=== PATIENT | female | born 1950 | race Caucasian/White ===

== ENCOUNTER → 2016-12-02 | Outpatient (CLI) | payer MEDICARE | END | disposition home or self-care (01) | LOC: CFH 11:05 | PROVIDERS: ATTEND Nurse Practitioner Family | DX: S72.091A Other fracture of head and neck of right femur, initial encounter for closed fracture (principal); M21.851 Other specified acquired deformities of right thigh; M16.0 Bilateral primary osteoarthritis of hip; X58.XXXA Exposure to other specified factors, initial encounter; Y93.89 Activity, other specified; Y92.89 Other specified places as the place of occurrence of the external cause; Y99.8 Other external cause status | CPT/HCPCS: 73523 ==

== ENCOUNTER → 2017-05-20 | Outpatient (CLI) | payer MEDICARE | END | disposition home or self-care (01) | LOC: CFH 14:24 | PROVIDERS: ATTEND Nurse Practitioner Family | DX: Z12.31 Encounter for screening mammogram for malignant neoplasm of breast (principal); M85.80 Other specified disorders of bone density and structure, unspecified site; N95.8 Other specified menopausal and perimenopausal disorders | CPT/HCPCS: 77067 ==

== ENCOUNTER 2017-07-17 10:07 | Day surgery (SDC) | payer MEDICARE ==
[2017-07-14 16:09] LABS: BASOPHILS # (AUTO) 0.03 x10^3/uL (0-0.1); BASOPHILS % (AUTO) 0 % (0-1); EOSINOPHILS # (AUTO) 0.18 x10^3/uL (0-0.4); EOSINOPHILS % (AUTO) 2 % (1-7); LYMPHOCYTES # (AUTO) 3.49 x10^3/uL (1-3.4); LYMPHOCYTES % (AUTO) 37 % (22-44); MD NO; MEAN CORPUSCULAR HEMOGLOBIN 30.2 pg (27.0-34.8); MEAN CORPUSCULAR HGB CONC 33.9 g/dL (32.4-35.8); MEAN PLATELET VOLUME 7.6 fL (7.4-10.4); MONOCYTES # (AUTO) 0.65 x10^3/uL (0.2-0.8); MONOCYTES % (AUTO) 7 % (2-9); NEUTROPHILS # (AUTO) 5.12 x10^3/uL (1.8-6.8); NEUTROPHILS % (AUTO) 54 % (42-75); PLATELET COUNT 265 x10^3/uL (130-400); RED BLOOD COUNT 5.11 x10^6/uL (3.82-5.3); RED CELL DISTRIBUTION WIDTH 14.7 % (9.6-15.2)
[2017-07-14 16:22] LABS: ALANINE AMINOTRANSFERASE 31 U/L (12-78); ALBUMIN 3.8 g/dL (3.4-5.0); ANION GAP 3 mmol/L (5-15); CALCIUM 9.9 mg/dL (8.5-10.1); CHLORIDE 111 mmol/L (98-107); CREATININE 0.75 mg/dL (0.55-1.02)
[2017-07-14 16:24] LABS: ALKALINE PHOSPHATASE 95 U/L (45-117); BILIRUBIN,TOTAL 0.3 mg/dL (0.2-1.0); TOTAL PROTEIN 7.2 g/dL (6.4-8.2)
[~2017-07-17] VITALS: Ht 162.6 cm; Wt 105.0 kg
[~2017-07-17 10:07] MED LIST: BUPIVACAINE/PF 0.25% ONE; CHOL5000 PO; EPINEPHRINE 1 MG/ML, 1ML ONE; ISOSULFAN BLUE 10 MG/ML, 5ML IV ONE; SPIR50TA2 PO
[2017-07-17 12:37] VITALS: BP 148/89
[2017-07-17] MEDS ORDERED: ACETAMINOPHEN 500 MG TABLET PO ONE (13:00)
[2017-07-17] MEDS ORDERED: SCOPOLAMINE PATCH, 1.5MG PATCH.TD72 TD ONE (13:00)
[2017-07-17] MEDS ORDERED: ONDANSETRON ODT 8 MG PO ONE (13:00)
[2017-07-17] MEDS ORDERED: GABAPENTIN 300 MG CAPSULE PO ONE (13:00)
[2017-07-17] MEDS ORDERED: OxyconTIN ER 10 MG TAB.ER PO ONE (13:00)
[2017-07-17] MEDS ORDERED: LACTATED RINGERS 1,000 ML IV SCH ×2 (13:09→19:00)
[2017-07-17] MEDS ORDERED: MIDAZOLAM 1 MG/ML, 2ML ONE (13:32)
[2017-07-17] MEDS ORDERED: CEFAZOLIN 1,000 MG ONE (13:48)
[2017-07-17] MEDS ORDERED: ONDANSETRON 2MG/ML, 2ML ONE (13:48)
[2017-07-17] MEDS ORDERED: ROCURONIUM 10 MG/ML,10ML ONE (13:48)
[2017-07-17] MEDS ORDERED: PROPOFOL 10 MG/ML, 20ML ONE (13:48)
[2017-07-17] MEDS ORDERED: SUCCINYLCHOLINE 20 MG/ML, 10ML ONE (13:48)
[2017-07-17] MEDS ORDERED: DEXAMETHASONE 4 MG/ML, 5ML ONE (13:48)
[2017-07-17] MEDS ORDERED: LIDOCAINE 1%, 20ML ONE (14:23)
[2017-07-17] MEDS ORDERED: SODIUM BICARBONATE 4.2%, 5ML ONE (14:23)
[2017-07-17] MEDS ORDERED: BUPIVACAINE/PF-EPI 0.25% 1:200K IM ONE (14:31)
[2017-07-17] MEDS ORDERED: FENTANYL PF 250 MCG/5ML ONE (15:30)
[2017-07-17] MEDS ORDERED: FENTANYL PF 100 MCG/2ML ONE (16:51)
[2017-07-17] MEDS: FENTANYL PF 100 MCG/2ML IV PRN ×2 (16:56→17:11)
[2017-07-17] MEDS ORDERED: ONDANSETRON 2MG/ML, 2ML IVPush PRN ×2 (17:00→19:00)
[2017-07-17] MEDS ORDERED: OXYcodone 5 MG/5 ML ORAL.SOL UDC PO PRN (17:00)
[2017-07-17] MEDS ORDERED: hydrALAzine 20 MG/ML, 1ML IV PRN (17:00)
[2017-07-17] MEDS ORDERED: HYDROmorphone 1 MG/ML, 1ML IV PRN (17:00)
[2017-07-17] MEDS ORDERED: LABETALOL 5MG/ML, 20ML IV PRN (17:00)
[2017-07-17] MEDS ORDERED: METOCLOPRAMIDE 5 MG/ML, 2ML IV PRN (17:00)
[2017-07-17] MEDS ORDERED: ACETAMINOPHEN 325 MG TABLET PO PRN (17:00)
[2017-07-17] MEDS ORDERED: OXYcodone 5 MG/5 ML ORAL.SOL UDC ONE (17:14)
[2017-07-17] MEDS ORDERED: MEPERIDINE/PF 25MG/0.5ML ONE (17:30)
[2017-07-17] MEDS ORDERED: MEPERIDINE/PF 25MG/0.5ML IVPush PRN (18:00)
[2017-07-17] MEDS ORDERED: ONDANSETRON ODT 4 MG PO PRN (19:00)
[2017-07-17] MEDS ORDERED: MORPHINE SULFATE 4 MG/ML, 1ML IVPush PRN (19:00)
== END 2017-07-17 22:15 | disposition home or self-care (01) ==
LOC: SDC 10:07 → EDSTATUS 13:30 → 4NOR 18:14 → OUT 22:15
PROVIDERS: ATTEND Surgery
DX: C50.911 Malignant neoplasm of unspecified site of right female breast (principal); Z90.11 Acquired absence of right breast and nipple; Z87.39 Personal history of other diseases of the musculoskeletal system and connective tissue; Z96.653 Presence of artificial knee joint, bilateral; Z98.890 Other specified postprocedural states
CPT/HCPCS: 19301; 36415; 38525; 38792; 80053; 85025; 88305; 88307; 88329; 93005; A9541; C1729; J0171; J0330; J0690; J1100; J2175; J2250; J2405; J2704; J3010; J3490; J7120; Q0162

== ENCOUNTER → 2017-08-07 | Outpatient (CLI) | payer MEDICARE ==
[~2017-08-07] MED LIST changes: -BUPIVACAINE/PF 0.25% ONE; -EPINEPHRINE 1 MG/ML, 1ML ONE; -ISOSULFAN BLUE 10 MG/ML, 5ML IV ONE
== END | disposition home or self-care (01) ==
LOC: ROC 07:28
PROVIDERS: ATTEND Radiology Radiation Oncology
DX: Z08 Encounter for follow-up examination after completed treatment for malignant neoplasm (principal); C50.911 Malignant neoplasm of unspecified site of right female breast
CPT/HCPCS: 99214; G0463

== ENCOUNTER → 2017-08-26 | Outpatient (CLI) | payer MEDICARE ==
[~2017-08-26] MED LIST changes: +OMNIPAQUE 350 MG/ML, 100ML BOTTLE ONE
== END | disposition home or self-care (01) ==
LOC: RAD 09:23
PROVIDERS: ATTEND Internal Medicine Hematology & Oncology
DX: K57.30 Diverticulosis of large intestine without perforation or abscess without bleeding (principal); N85.2 Hypertrophy of uterus; E04.2 Nontoxic multinodular goiter; C50.411 Malignant neoplasm of upper-outer quadrant of right female breast
CPT/HCPCS: 71260; 74177; 78306; A9503; Q9967

== ENCOUNTER 2017-10-01 14:12 | Inpatient (IN) | payer MEDICARE ==
[~2017-10-01] VITALS: Ht 160 cm; Wt 99.2 kg
[~2017-10-01 14:12] MED LIST changes: -OMNIPAQUE 350 MG/ML, 100ML BOTTLE ONE; -SPIR50TA2 PO; +SPIR50TA4 PO
[2017-10-01] MEDS ORDERED: ACETAMINOPHEN 500 MG TABLET PO ONE (15:00)
[2017-10-01] MEDS ORDERED: SODIUM CHLORIDE 0.9% 1,000ML IVBOLUS ONE (15:00)
[2017-10-01 15:33] LABS: ALBUMIN 2.9 g/dL (3.4-5.0); ANION GAP 7 mmol/L (5-15); CHLORIDE 107 mmol/L (98-107); CREATININE 0.58 mg/dL (0.55-1.02)
[2017-10-01] MEDS ORDERED: ACETAMINOPHEN 500 MG TABLET ONE (15:33)
[2017-10-01 15:42] LABS: MEAN CORPUSCULAR HEMOGLOBIN 29.7 pg (27.0-34.8); MEAN CORPUSCULAR HGB CONC 34.2 g/dL (32.4-35.8); MEAN CORPUSCULAR VOLUME 86.9 fL (80-100); MEAN PLATELET VOLUME 8.1 fL (7.4-10.4); PLATELET COUNT 249 x10^3/uL (130-400); RED BLOOD COUNT 4.44 x10^6/uL (3.82-5.3); RED CELL DISTRIBUTION WIDTH 14.5 % (9.6-15.2)
[2017-10-01 15:49] LABS: MD YES
[2017-10-01] MEDS ORDERED: MULT-6 PO (16:05)
[2017-10-01] MEDS ORDERED: MAGN100T PO (16:05)
[2017-10-01 16:26] LABS: BAND#(MANUAL) 0.03 x10^3/uL; BANDS%(MANUAL) 1 % (0-7); LYMPH#(MANUAL) 1.43 x10^3/uL (1-3.4); LYMPHS% (MANUAL) 55 % (22-44); MONOS#(MANUAL) 0.57 x10^3/uL (0.3-2.7); MONOS% (MANUAL) 22 % (2-9); SEG#(MANUAL) 0.57 x10^3/uL (1.8-6.8); SEGS% (MANUAL) 22 % (42-75)
[2017-10-01 16:29] LABS: <PLATELET ESTIMATE> ADEQUATE; <PLT MORPHOLOGY> NORMAL PLT MORPH; <RBC MORPHOLOGY> NORMAL
[2017-10-01 17:00] LABS: MICROSCOPIC INDICATED
[2017-10-01] MEDS ORDERED: ERTAPENEM 1 GM in SODIUM CHLORIDE 0.9% 50 ML IV SCH ×2 (17:00→18:00)
[2017-10-01 17:01] LABS: CULTURE INDICATED? YES
[2017-10-01] MEDS ORDERED: ONDANSETRON 2MG/ML, 2ML IVPush PRN (17:30)
[2017-10-01] MEDS ORDERED: DOCUSATE 100 MG CAPSULE PO PRN (17:30)
[2017-10-01] MEDS ORDERED: ONDANSETRON ODT 4 MG PO PRN (17:30)
[2017-10-01] MEDS ORDERED: POLYETHYLENE GLYCOL 17 GM PACKET PO PRN (17:30)
[2017-10-01 18:10] VITALS: BP 125/77
[2017-10-01] MEDS: SODIUM CHLORIDE 0.9% 1,000 ML IV SCH (18:47)
[2017-10-01 19:44] VITALS: BP 114/74
[2017-10-01] MEDS: ENOXAPARIN 40 MG/0.4 ML SQ SCH (20:00)
[2017-10-02 02:20] VITALS: BP 100/60
[2017-10-02] MEDS: SODIUM CHLORIDE 0.9% 1,000 ML IV SCH (02:22)
[2017-10-02 05:49] LABS: ALANINE AMINOTRANSFERASE 26 U/L (12-78); ALBUMIN 2.6 g/dL (3.4-5.0); ANION GAP 5 mmol/L (5-15); CALCIUM 8.7 mg/dL (8.5-10.1); CHLORIDE 111 mmol/L (98-107); CREATININE 0.43 mg/dL (0.55-1.02)
[2017-10-02 05:51] LABS: ALKALINE PHOSPHATASE 105 U/L (45-117); BILIRUBIN,TOTAL 0.4 mg/dL (0.2-1.0); MEAN CORPUSCULAR HGB CONC 33.4 g/dL (32.4-35.8); MEAN CORPUSCULAR VOLUME 86.8 fL (80-100); MEAN PLATELET VOLUME 7.9 fL (7.4-10.4); PLATELET COUNT 234 x10^3/uL (130-400); RED BLOOD COUNT 3.98 x10^6/uL (3.82-5.3); RED CELL DISTRIBUTION WIDTH 14.3 % (9.6-15.2); TOTAL PROTEIN 5.7 g/dL (6.4-8.2)
[2017-10-02 06:19] LABS: MD YES
[2017-10-02 06:22] LABS: BAND#(MANUAL) 0.11 x10^3/uL; BANDS%(MANUAL) 3 % (0-7); EOS#(MANUAL) 0.04 x10^3/uL (0.0-0.4); EOS% (MANUAL) 1 % (1-7); METAMYELOCYTES# (MANUAL) 0.04 x10^3/uL (0-0); METAMYELOCYTES% (MANUAL) 1 % (0-1); NRBC % (MANUAL) 2 % (0-1); SEG#(MANUAL) 0.78 x10^3/uL (1.8-6.8); SEGS% (MANUAL) 21 % (42-75)
[2017-10-02 06:23] LABS: BASOS#(MANUAL) 0.07 x10^3/uL (0-0.1); BASOS% (MANUAL) 2 % (0-1); LYMPHS% (MANUAL) 46 % (22-44); MONOS#(MANUAL) 0.96 x10^3/uL (0.3-2.7); MONOS% (MANUAL) 26 % (2-9)
[2017-10-02 06:24] LABS: <PLATELET ESTIMATE> ADEQUATE; <PLT MORPHOLOGY> NORMAL PLT MORPH; <RBC MORPHOLOGY> NORMAL
[2017-10-02 08:18] LABS: CLOSTRIDIUM DIFFICILE ANTIGEN NEGATIVE; CLOSTRIDIUM DIFFICILE TOXIN NEGATIVE (Negative)
[2017-10-02 08:30] VITALS: BP 105/70
[2017-10-02 08:30] LABS: CRYPTOSPORIDIUM ANTIGEN Negative (Negative)
[2017-10-02] MEDS: MULTIVITAMIN 1 TABLET PO SCH (08:58)
[2017-10-02] MEDS: CHOLECALCIFEROL 5,000 UNIT TAB PO SCH (08:58)
[2017-10-02] MEDS: MAGNESIUM OXIDE 400 MG TABLET PO SCH (08:59)
[2017-10-02] MEDS: SPIRONOLACTONE 50 MG TABLET PO SCH (09:00)
[2017-10-02] MEDS: CEFEPIME 2 GM in DEXTROSE 5% 100 ML IV SCH ×2 (10:14→18:20)
[2017-10-02 13:49] VITALS: BP 107/69
[2017-10-02] MEDS: ACETAMINOPHEN 325 MG TABLET PO PRN (16:01)
[2017-10-02 19:28] VITALS: BP 99/66
[2017-10-02] MEDS: ENOXAPARIN 40 MG/0.4 ML SQ SCH (20:38)
[2017-10-03] MEDS: CEFEPIME 2 GM in DEXTROSE 5% 100 ML IV SCH (01:57)
[2017-10-03 02:03] VITALS: BP 96/59
[2017-10-03 05:42] LABS: ANION GAP 6 mmol/L (5-15); CALCIUM 9.1 mg/dL (8.5-10.1); CHLORIDE 112 mmol/L (98-107); CREATININE 0.44 mg/dL (0.55-1.02)
[2017-10-03 05:46] LABS: MEAN CORPUSCULAR HEMOGLOBIN 28.8 pg (27.0-34.8); MEAN CORPUSCULAR HGB CONC 33.3 g/dL (32.4-35.8); MEAN CORPUSCULAR VOLUME 86.4 fL (80-100); MEAN PLATELET VOLUME 7.7 fL (7.4-10.4); PLATELET COUNT 239 x10^3/uL (130-400); RED BLOOD COUNT 3.97 x10^6/uL (3.82-5.3); RED CELL DISTRIBUTION WIDTH 14.3 % (9.6-15.2)
[2017-10-03 06:22] LABS: MD YES
[2017-10-03 06:24] LABS: BAND#(MANUAL) 0.46 x10^3/uL; BANDS%(MANUAL) 6 % (0-7); EOS#(MANUAL) 0.23 x10^3/uL (0.0-0.4); EOS% (MANUAL) 3 % (1-7); LYMPH#(MANUAL) 1.85 x10^3/uL (1-3.4); LYMPHS% (MANUAL) 24 % (22-44); METAMYELOCYTES# (MANUAL) 0.08 x10^3/uL (0-0); METAMYELOCYTES% (MANUAL) 1 % (0-1); MONOS#(MANUAL) 1.31 x10^3/uL (0.3-2.7); MONOS% (MANUAL) 17 % (2-9); SEG#(MANUAL) 3.77 x10^3/uL (1.8-6.8); SEGS% (MANUAL) 49 % (42-75)
[2017-10-03 06:25] LABS: <RBC MORPHOLOGY> NORMAL
[2017-10-03 06:26] LABS: <PLATELET ESTIMATE> ADEQUATE; <PLT MORPHOLOGY> NORMAL PLT MORPH; TOXIC GRAN 1+
[2017-10-03 06:50] VITALS: BP 103/67
[2017-10-03] MEDS: ACETAMINOPHEN 325 MG TABLET PO PRN (07:38)
[2017-10-03] MEDS: SPIRONOLACTONE 50 MG TABLET PO SCH (07:38)
[2017-10-03] MEDS: MULTIVITAMIN 1 TABLET PO SCH (07:38)
[2017-10-03] MEDS: MAGNESIUM OXIDE 400 MG TABLET PO SCH (07:38)
[2017-10-03] MEDS: CHOLECALCIFEROL 5,000 UNIT TAB PO SCH (07:38)
[2017-10-03] MEDS ORDERED: CIPROFLOXACIN 500 MG TABLET PO SCH (09:00)
[2017-10-03] MEDS ORDERED: CIPR500T87 PO (10:05)
== END 2017-10-03 12:31 | disposition home or self-care (01) | DRG 872 ==
LOC: ED 16:59 → EDIP 17:02 → 3NW 17:38 → DCLOUNGE 10-03 12:31
PROVIDERS: ADMIT Hospitalist; ATTEND Hospitalist
DX: A41.9 Sepsis, unspecified organism (principal); N39.0 Urinary tract infection, site not specified; E44.0 Moderate protein-calorie malnutrition; B96.20 Unspecified Escherichia coli [E. coli] as the cause of diseases classified elsewhere; B96.89 Other specified bacterial agents as the cause of diseases classified elsewhere; Z96.653 Presence of artificial knee joint, bilateral; D70.9 Neutropenia, unspecified; D64.9 Anemia, unspecified; Z80.3 Family history of malignant neoplasm of breast; Z82.0 Family history of epilepsy and other diseases of the nervous system; Z80.0 Family history of malignant neoplasm of digestive organs; Z85.3 Personal history of malignant neoplasm of breast; Z92.21 Personal history of antineoplastic chemotherapy; Z17.0 Estrogen receptor positive status [ER+]; Z90.10 Acquired absence of unspecified breast and nipple; Z68.38 Body mass index [BMI] 38.0-38.9, adult
CPT/HCPCS: 36415; 71045; 80048; 80053; 81001; 82040; 83605; 84145; 84443; 85025; 87040; 87077; 87086; 87186; 87324; 87328; 87329; 89055; 99285; J1335; J1650; J7030

== ENCOUNTER 2017-10-20 08:07 | Inpatient (IN) | payer MEDICARE ==
[~2017-10-20] VITALS: Ht 160 cm; Wt 107.8 kg
[~2017-10-20 08:07] MED LIST changes: +CIPR500T87 PO; +MAGN100T PO; +MULT-6 PO
[2017-10-20] MEDS ORDERED: SODIUM CHLORIDE FLUSH 10ML SYR IVF ONE (09:30)
[2017-10-20 10:01] LABS: ALANINE AMINOTRANSFERASE 35 U/L (12-78); ALBUMIN 3.1 g/dL (3.4-5.0); ANION GAP 5 mmol/L (5-15); CALCIUM 8.8 mg/dL (8.5-10.1); CHLORIDE 109 mmol/L (98-107); CREATININE 0.54 mg/dL (0.55-1.02)
[2017-10-20 10:03] LABS: ALKALINE PHOSPHATASE 113 U/L (45-117); BILIRUBIN,TOTAL 0.6 mg/dL (0.2-1.0)
[2017-10-20 10:05] LABS: MEAN CORPUSCULAR HEMOGLOBIN 28.8 pg (27.0-34.8); MEAN CORPUSCULAR HGB CONC 33.2 g/dL (32.4-35.8); MEAN CORPUSCULAR VOLUME 86.9 fL (80-100); MEAN PLATELET VOLUME 7.9 fL (7.4-10.4); PLATELET COUNT 195 x10^3/uL (130-400); RED BLOOD COUNT 4.42 x10^6/uL (3.82-5.3); RED CELL DISTRIBUTION WIDTH 15.9 % (9.6-15.2)
[2017-10-20 10:21] LABS: MD YES
[2017-10-20 10:23] LABS: BAND#(MANUAL) 1.27 x10^3/uL; BANDS%(MANUAL) 11 % (0-7); EOS#(MANUAL) 0.12 x10^3/uL (0.0-0.4); EOS% (MANUAL) 1 % (1-7); LYMPH#(MANUAL) 0.58 x10^3/uL (1-3.4); LYMPHS% (MANUAL) 5 % (22-44); MONOS#(MANUAL) 0.12 x10^3/uL (0.3-2.7); MONOS% (MANUAL) 1 % (2-9); SEG#(MANUAL) 9.43 x10^3/uL (1.8-6.8); SEGS% (MANUAL) 82 % (42-75)
[2017-10-20 10:24] LABS: <RBC MORPHOLOGY> NORMAL
[2017-10-20 10:25] LABS: <PLATELET ESTIMATE> ADEQUATE; <PLT MORPHOLOGY> NORMAL PLT MORPH
[2017-10-20 10:51] LABS: MICROSCOPIC INDICATED
[2017-10-20 10:52] LABS: CULTURE INDICATED? YES
[2017-10-20] MEDS ORDERED: CEFTRIAXONE PMX 1GM/50ML 50 ML ONE (12:29)
[2017-10-20] MEDS ORDERED: CEFTRIAXONE PMX 1GM/50ML 50 ML IV ONE (12:30)
[2017-10-20] MEDS ORDERED: SODIUM CHLORIDE 0.9% 1,000 ML IV ONE (12:32)
[2017-10-20] MEDS ORDERED: ACETAMINOPHEN 500 MG TABLET ONE (12:42)
[2017-10-20] MEDS ORDERED: SODIUM CHLORIDE 0.9% 1,000ML IVBOLUS ONE (13:00)
[2017-10-20] MEDS ORDERED: ACETAMINOPHEN 500 MG TABLET PO ONE (13:00)
[2017-10-20] MEDS ORDERED: ONDANSETRON 2MG/ML, 2ML IVPush PRN (13:30)
[2017-10-20] MEDS ORDERED: LABETALOL 5MG/ML, 20ML IVPush PRN (13:30)
[2017-10-20] MEDS ORDERED: ONDANSETRON ODT 4 MG PO PRN (13:30)
[2017-10-20 14:00] VITALS: BP 115/72
[2017-10-20] MEDS: SODIUM CHLORIDE 0.9% 1,000 ML IV SCH (14:32)
[2017-10-20] MEDS: PIPERACILLIN/TAZO/PMX 3.375GM 50 ML IV SCH ×2 (14:51→20:28)
[2017-10-20 19:34] VITALS: BP 125/80
[2017-10-20] MEDS: ACETAMINOPHEN 325 MG TABLET PO PRN (20:48)
[2017-10-21] MEDS: PIPERACILLIN/TAZO/PMX 3.375GM 50 ML IV SCH ×4 (01:38→19:49)
[2017-10-21 02:20] VITALS: BP 120/72
[2017-10-21] MEDS: SODIUM CHLORIDE 0.9% 1,000 ML IV SCH (04:03)
[2017-10-21 04:24] LABS: MEAN CORPUSCULAR HGB CONC 33.4 g/dL (32.4-35.8); MEAN CORPUSCULAR VOLUME 87.1 fL (80-100); MEAN PLATELET VOLUME 7.8 fL (7.4-10.4); PLATELET COUNT 184 x10^3/uL (130-400); RED BLOOD COUNT 4.02 x10^6/uL (3.82-5.3); RED CELL DISTRIBUTION WIDTH 16.1 % (9.6-15.2)
[2017-10-21 04:33] LABS: ALANINE AMINOTRANSFERASE 30 U/L (12-78); ALBUMIN 2.6 g/dL (3.4-5.0); ANION GAP 5 mmol/L (5-15); CALCIUM 8.7 mg/dL (8.5-10.1); CHLORIDE 113 mmol/L (98-107); CREATININE 0.52 mg/dL (0.55-1.02)
[2017-10-21 04:36] LABS: ALKALINE PHOSPHATASE 103 U/L (45-117); BILIRUBIN,TOTAL 0.9 mg/dL (0.2-1.0); TOTAL PROTEIN 5.7 g/dL (6.4-8.2)
[2017-10-21 04:57] LABS: BASOPHILS % (AUTO) 0 % (0-1); EOSINOPHILS # (AUTO) 0.05 x10^3/uL (0-0.4); EOSINOPHILS % (AUTO) 1 % (1-7); LYMPHOCYTES # (AUTO) 0.83 x10^3/uL (1-3.4); LYMPHOCYTES % (AUTO) 15 % (22-44); MD SCAN; MONOCYTES # (AUTO) 0.07 x10^3/uL (0.2-0.8); MONOCYTES % (AUTO) 1 % (2-9); NEUTROPHILS # (AUTO) 4.61 x10^3/uL (1.8-6.8); NEUTROPHILS % (AUTO) 83 % (42-75)
[2017-10-21 07:45] VITALS: BP 125/75
[2017-10-21] MEDS: SENNA/DOCUSATE TABLET PO SCH (07:56)
[2017-10-21 15:51] VITALS: BP 145/81
[2017-10-21] MEDS: ACETAMINOPHEN 325 MG TABLET PO PRN (16:26)
[2017-10-21 19:20] VITALS: BP 132/82
[2017-10-22 01:50] VITALS: BP 107/67
[2017-10-22] MEDS: ACETAMINOPHEN 325 MG TABLET PO PRN ×3 (02:01→18:13)
[2017-10-22] MEDS: PIPERACILLIN/TAZO/PMX 3.375GM 50 ML IV SCH ×2 (02:01→09:22)
[2017-10-22 04:41] LABS: MEAN CORPUSCULAR HEMOGLOBIN 29.2 pg (27.0-34.8); MEAN CORPUSCULAR HGB CONC 33.6 g/dL (32.4-35.8); MEAN CORPUSCULAR VOLUME 86.8 fL (80-100); MEAN PLATELET VOLUME 7.8 fL (7.4-10.4); PLATELET COUNT 166 x10^3/uL (130-400); RED BLOOD COUNT 3.75 x10^6/uL (3.82-5.3); RED CELL DISTRIBUTION WIDTH 16.3 % (9.6-15.2)
[2017-10-22 04:48] LABS: ALANINE AMINOTRANSFERASE 29 U/L (12-78); ALBUMIN 2.7 g/dL (3.4-5.0); ANION GAP 4 mmol/L (5-15); CHLORIDE 111 mmol/L (98-107)
[2017-10-22 04:51] LABS: ALKALINE PHOSPHATASE 104 U/L (45-117); BILIRUBIN,TOTAL 0.7 mg/dL (0.2-1.0); CREATININE 0.54 mg/dL (0.55-1.02); TOTAL PROTEIN 5.7 g/dL (6.4-8.2)
[2017-10-22 05:20] LABS: BASOPHILS % (AUTO) 0 % (0-1); EOSINOPHILS % (AUTO) 4 % (1-7); LYMPHOCYTES # (AUTO) 0.82 x10^3/uL (1-3.4); LYMPHOCYTES % (AUTO) 34 % (22-44); MD SCAN; MONOCYTES # (AUTO) 0.13 x10^3/uL (0.2-0.8); MONOCYTES % (AUTO) 5 % (2-9); NEUTROPHILS # (AUTO) 1.35 x10^3/uL (1.8-6.8); NEUTROPHILS % (AUTO) 56 % (42-75)
[2017-10-22 07:22] VITALS: BP 123/73
[2017-10-22] MEDS: SENNA/DOCUSATE TABLET PO SCH (09:00)
[2017-10-22] MEDS ORDERED: CEFTRIAXONE 2 GM in SODIUM CHLORIDE 0.9% 50 ML IV SCH (10:00)
[2017-10-22 12:14] VITALS: BP 117/82
[2017-10-22 19:01] VITALS: BP 142/85
[2017-10-23] MEDS: ACETAMINOPHEN 325 MG TABLET PO PRN (01:47)
[2017-10-23 01:50] VITALS: BP 143/83
[2017-10-23 05:10] LABS: ALBUMIN 2.4 g/dL (3.4-5.0); ANION GAP 3 mmol/L (5-15); CHLORIDE 114 mmol/L (98-107)
[2017-10-23 05:14] LABS: ALANINE AMINOTRANSFERASE 26 U/L (12-78); ALKALINE PHOSPHATASE 101 U/L (45-117); BILIRUBIN,TOTAL 0.5 mg/dL (0.2-1.0); CREATININE 0.49 mg/dL (0.55-1.02); TOTAL PROTEIN 5.5 g/dL (6.4-8.2)
[2017-10-23 05:38] LABS: MEAN CORPUSCULAR HEMOGLOBIN 30.1 pg (27.0-34.8); MEAN CORPUSCULAR HGB CONC 34.7 g/dL (32.4-35.8); MEAN CORPUSCULAR VOLUME 86.8 fL (80-100); MEAN PLATELET VOLUME 7.4 fL (7.4-10.4); PLATELET COUNT 198 x10^3/uL (130-400); RED BLOOD COUNT 3.61 x10^6/uL (3.82-5.3); RED CELL DISTRIBUTION WIDTH 15.9 % (9.6-15.2)
[2017-10-23 06:28] LABS: MD YES
[2017-10-23 06:33] LABS: EOS#(MANUAL) 0.14 x10^3/uL (0.0-0.4); EOS% (MANUAL) 6 % (1-7); LYMPH#(MANUAL) 1.29 x10^3/uL (1-3.4); LYMPHS% (MANUAL) 56 % (22-44); MONOS#(MANUAL) 0.37 x10^3/uL (0.3-2.7); MONOS% (MANUAL) 16 % (2-9); NRBC % (MANUAL) 2 % (0-1); SEG#(MANUAL) 0.51 x10^3/uL (1.8-6.8); SEGS% (MANUAL) 22 % (42-75)
[2017-10-23 06:34] LABS: <PLATELET ESTIMATE> ADEQUATE; <PLT MORPHOLOGY> NORMAL PLT MORPH; ANISOCYTOSIS 1+
[2017-10-23] MEDS ORDERED: MAGNESIUM SULFATE PMX 2GM/50ML 50 ML IV ONE (07:30)
[2017-10-23] MEDS: NEUTRA PHOS K 250 MG TABLET PO SCH ×2 (08:04→21:21)
[2017-10-23] MEDS: SENNA/DOCUSATE TABLET PO SCH (08:05)
[2017-10-23 08:10] VITALS: BP 127/79
[2017-10-23] MEDS: CEFTRIAXONE 2 GM in SODIUM CHLORIDE 0.9% 50 ML IV SCH (11:16)
[2017-10-23 13:39] VITALS: BP 117/77
[2017-10-23] MEDS: LORATADINE 10 MG TABLET PO SCH (17:54)
[2017-10-23] MEDS ORDERED: OXYcodone IR 5MG TABLET PO PRN (18:30)
[2017-10-23 18:49] VITALS: BP 119/74
[2017-10-24 03:11] VITALS: BP 115/59
[2017-10-24 07:10] VITALS: BP 131/80
[2017-10-24 07:51] LABS: MEAN CORPUSCULAR HEMOGLOBIN 29.1 pg (27.0-34.8); MEAN CORPUSCULAR HGB CONC 33.5 g/dL (32.4-35.8); MEAN CORPUSCULAR VOLUME 86.9 fL (80-100); MEAN PLATELET VOLUME 7.2 fL (7.4-10.4); PLATELET COUNT 241 x10^3/uL (130-400); RED BLOOD COUNT 3.84 x10^6/uL (3.82-5.3); RED CELL DISTRIBUTION WIDTH 15.7 % (9.6-15.2)
[2017-10-24 07:59] LABS: ALANINE AMINOTRANSFERASE 30 U/L (12-78); ALBUMIN 2.7 g/dL (3.4-5.0); ANION GAP 11 mmol/L (5-15); CALCIUM 9.1 mg/dL (8.5-10.1); CHLORIDE 108 mmol/L (98-107); CREATININE 0.44 mg/dL (0.55-1.02)
[2017-10-24 08:01] LABS: ALKALINE PHOSPHATASE 104 U/L (45-117); BILIRUBIN,TOTAL 0.4 mg/dL (0.2-1.0); TOTAL PROTEIN 5.7 g/dL (6.4-8.2)
[2017-10-24] MEDS ORDERED: POTASSIUM CHLORIDE 20 MEQ TAB.ER.PRT PO ONE ×2 (08:30→11:30)
[2017-10-24 08:36] LABS: BASOPHILS % (AUTO) 2 % (0-1); EOSINOPHILS # (AUTO) 0.07 x10^3/uL (0-0.4); EOSINOPHILS % (AUTO) 1 % (1-7); LYMPHOCYTES % (AUTO) 28 % (22-44); MD SCAN; MONOCYTES # (AUTO) 1.09 x10^3/uL (0.2-0.8); MONOCYTES % (AUTO) 19 % (2-9); NEUTROPHILS # (AUTO) 2.81 x10^3/uL (1.8-6.8); NEUTROPHILS % (AUTO) 50 % (42-75)
[2017-10-24] MEDS: NEUTRA PHOS K 250 MG TABLET PO SCH (08:51)
[2017-10-24] MEDS: LORATADINE 10 MG TABLET PO SCH (08:51)
[2017-10-24] MEDS: SENNA/DOCUSATE TABLET PO SCH (08:52)
[2017-10-24] MEDS ORDERED: LORATADINE 10 MG TABLET PO SCH (09:00)
[2017-10-24] MEDS ORDERED: CEFD300C37 PO (09:40)
[2017-10-24] MEDS: CEFTRIAXONE 2 GM in SODIUM CHLORIDE 0.9% 50 ML IV SCH (10:06)
== END 2017-10-24 11:50 | disposition home or self-care (01) | DRG 872 ==
LOC: ED 12:45 → EDIP 12:46 → ED 12:57 → 3NW 13:36 → DCLOUNGE 10-24 11:31
PROVIDERS: ADMIT Hospitalist; ATTEND Hospitalist
DX: A41.9 Sepsis, unspecified organism (principal); E44.0 Moderate protein-calorie malnutrition; D89.9 Disorder involving the immune mechanism, unspecified; N30.90 Cystitis, unspecified without hematuria; Z96.653 Presence of artificial knee joint, bilateral; Z66 Do not resuscitate; Z90.10 Acquired absence of unspecified breast and nipple; Z92.21 Personal history of antineoplastic chemotherapy; Z80.0 Family history of malignant neoplasm of digestive organs; Z80.3 Family history of malignant neoplasm of breast; Z85.3 Personal history of malignant neoplasm of breast
CPT/HCPCS: 36415; 71045; 76830; 80053; 81001; 83605; 83735; 84100; 84145; 85025; 87040; 87086; 96365; G0378; J0696; J2543; J3475; J7030

== ENCOUNTER 2017-11-12 20:10 | Emergency (ER) | payer MEDICARE ==
[~2017-11-12] VITALS: Ht 160 cm; Wt 104.1 kg
[~2017-11-12 20:10] MED LIST changes: +CEFD300C37 PO
[2017-11-12 20:12] VITALS: BP 133/78
[2017-11-12] MEDS ORDERED: ACETAMINOPHEN 500 MG TABLET ONE (20:56)
[2017-11-12] MEDS ORDERED: SODIUM CHLORIDE FLUSH 10ML SYR IVF ONE (21:00)
[2017-11-12] MEDS ORDERED: ACETAMINOPHEN 500 MG TABLET PO ONE (21:00)
[2017-11-12] MEDS ORDERED: SODIUM CHLORIDE 0.9% 1,000ML IVBOLUS ONE (21:00)
[2017-11-12 21:06] LABS: ALBUMIN 2.8 g/dL (3.4-5.0); ANION GAP 10 mmol/L (5-15); CALCIUM 9.3 mg/dL (8.5-10.1); CHLORIDE 108 mmol/L (98-107); CREATININE 0.54 mg/dL (0.55-1.02)
[2017-11-12 21:11] LABS: CULTURE INDICATED? YES; MICROSCOPIC INDICATED
[2017-11-12 21:11] LABS: MEAN CORPUSCULAR HEMOGLOBIN 29.7 pg (27.0-34.8); MEAN CORPUSCULAR VOLUME 87.2 fL (80-100); MEAN PLATELET VOLUME 7.7 fL (7.4-10.4); PLATELET COUNT 179 x10^3/uL (130-400); RED BLOOD COUNT 4.03 x10^6/uL (3.82-5.3); RED CELL DISTRIBUTION WIDTH 18.1 % (9.6-15.2)
[2017-11-12 21:33] LABS: MD YES
[2017-11-12 21:38] LABS: <PLATELET ESTIMATE> ADEQUATE; ANISOCYTOSIS 1+; EOS#(MANUAL) 0.04 x10^3/uL (0.0-0.4); EOS% (MANUAL) 2 % (1-7); LYMPH#(MANUAL) 1.17 x10^3/uL (1-3.4); LYMPHS% (MANUAL) 53 % (22-44); MONOS#(MANUAL) 0.44 x10^3/uL (0.3-2.7); MONOS% (MANUAL) 20 % (2-9); SEG#(MANUAL) 0.55 x10^3/uL (1.8-6.8); SEGS% (MANUAL) 25 % (42-75)
[2017-11-12 21:39] LABS: <PLT MORPHOLOGY> NORMAL PLT MORPH
== END 2017-11-12 22:48 | disposition home or self-care (01) ==
LOC: ED 22:06
DX: R50.9 Fever, unspecified (principal); M79.10 Myalgia, unspecified site; T45.1X5A Adverse effect of antineoplastic and immunosuppressive drugs, initial encounter; C50.919 Malignant neoplasm of unspecified site of unspecified female breast; Z90.10 Acquired absence of unspecified breast and nipple; Y84.8 Other medical procedures as the cause of abnormal reaction of the patient, or of later complication, without mention of misadventure at the time of the procedure; Y92.89 Other specified places as the place of occurrence of the external cause
CPT/HCPCS: 36415; 71045; 80048; 81001; 82040; 83605; 84145; 85025; 87040; 87077; 87086; 99285; J7030

== ENCOUNTER → 2017-12-01 | Outpatient (CLI) | payer MEDICARE | END | disposition home or self-care (01) | LOC: ROC 08:06 | PROVIDERS: ATTEND Radiology Radiation Oncology | DX: C50.411 Malignant neoplasm of upper-outer quadrant of right female breast (principal) | CPT/HCPCS: 99213; G0463 ==

== ENCOUNTER → 2018-02-09 | Outpatient (CLI) | payer MEDICARE | END | disposition home or self-care (01) | LOC: ROC 08:05 | PROVIDERS: ATTEND Radiology Radiation Oncology | DX: C50.411 Malignant neoplasm of upper-outer quadrant of right female breast (principal) | CPT/HCPCS: 99213; G0463 ==

== ENCOUNTER → 2018-05-22 | Outpatient (CLI) | payer MEDICARE | END | disposition home or self-care (01) | LOC: CFH 12:35 | PROVIDERS: ATTEND Radiology Radiation Oncology | DX: Z12.31 Encounter for screening mammogram for malignant neoplasm of breast (principal) | CPT/HCPCS: 77063; 77067 ==

== ENCOUNTER 2019-07-20 09:39 | Outpatient (CLI) | payer MEDICARE | END 2019-07-20 23:59 | disposition home or self-care (01) | LOC: CFH 09:39 | PROVIDERS: ATTEND Family Medicine | DX: R92.2 Inconclusive mammogram (principal); N63.0 Unspecified lump in unspecified breast; M79.89 Other specified soft tissue disorders | CPT/HCPCS: 76642; 77065 ==

== ENCOUNTER 2019-08-02 13:20 | Outpatient (CLI) | payer MEDICARE ==
[2019-08-02] MEDS ORDERED: GADOTERATE 10 MMOL/20 ML VIAL ONE (14:42)
== END 2019-08-02 23:59 | disposition home or self-care (01) ==
LOC: CFH 13:20
PROVIDERS: ATTEND Family Medicine
DX: R92.2 Inconclusive mammogram (principal)
CPT/HCPCS: 77049; A9575; C8937; C8908

== ENCOUNTER → 2020-06-08 | Outpatient (CLI) | payer MEDICARE ==
[2020-06-08 13:32] LABS: BASOPHILS % (AUTO) 1 % (0-1); EOSINOPHILS % (AUTO) 2 % (1-7); LYMPHOCYTES % (AUTO) 29 % (22-44); MD NO; MEAN CORPUSCULAR HEMOGLOBIN 30.2 pg (27.0-34.8); MEAN CORPUSCULAR HGB CONC 33.5 g/dL (32.4-35.8); MEAN PLATELET VOLUME 7.8 fL (7.4-10.4); MONOCYTES % (AUTO) 7 % (2-9); NEUTROPHILS % (AUTO) 62 % (42-75); PLATELET COUNT 251 x10^3/uL (130-400); RED BLOOD COUNT 5.24 x10^6/uL (3.82-5.3); RED CELL DISTRIBUTION WIDTH 14.7 % (9.6-15.2)
[2020-06-08 13:41] LABS: ALANINE AMINOTRANSFERASE 45 U/L (12-78); ALBUMIN 3.9 g/dL (3.4-5.0); ANION GAP 3 mmol/L (5-15); CALCIUM 10.2 mg/dL (8.5-10.1); CHLORIDE 111 mmol/L (98-107); CREATININE 0.56 mg/dL (0.55-1.02)
[2020-06-08 13:42] LABS: INTERNATIONAL NORMALIZED RATIO 1.02 (0.93-1.1); PROTHROMBIN TIME 10.9 Seconds (9.6-11.5)
[2020-06-08 13:44] LABS: ALKALINE PHOSPHATASE 106 U/L (45-117); BILIRUBIN,TOTAL 0.4 mg/dL (0.2-1.0); TOTAL PROTEIN 6.9 g/dL (6.4-8.2)
== END | disposition home or self-care (01) ==
LOC: STAR 12:31
PROVIDERS: ATTEND Orthopaedic Surgery
DX: Z01.812 Encounter for preprocedural laboratory examination (principal); Z20.822 Contact with and (suspected) exposure to COVID-19; Z01.818 Encounter for other preprocedural examination; Z79.01 Long term (current) use of anticoagulants; M16.11 Unilateral primary osteoarthritis, right hip
CPT/HCPCS: 36415; 80053; 83036; 85025; 85610; 85730; 87081; 87147; 93005; U0003

== ENCOUNTER 2020-06-14 10:23 | Observation (INO) | payer MEDICARE ==
[~2020-06-14] VITALS: Ht 160 cm; Wt 109.4 kg
[2020-06-14] MEDS: NS + 20MEQ KCL 1,000 ML IV SCH ×2 (07:00→19:30)
[2020-06-14] MEDS: DOCUSATE 100 MG CAPSULE PO SCH ×2 (09:00→21:00)
[2020-06-14] MEDS: SPIRONOLACTONE 50 MG TABLET PO SCH (09:00)
[~2020-06-14 10:23] MED LIST changes: +ACETAMINOPHEN 650 MG/20.3 ML UDC PO PRN; +BISACODYL 10 MG SUPP PR PRN; +DIPHENHYDRAMINE 25 MG CAPSULE PO PRN; +EPINEPHRINE 1 MG/ML, 1ML ONE; +KETOROLAC 60 MG/2 ML ONE; +MAGNESIUM HYDROXIDE 8%, 30ML UDC PO PRN; +ONDANSETRON 2MG/ML, 2ML IV PRN; +ONDANSETRON 4 MG TABLET PO PRN; +OXYcodone IR 5MG TABLET PO PRN; +PROPOFOL 10 MG/ML, 50ML ONE; +ROPIvacaine/PF 0.5%, 20 ML ONE; +ROPIvacaine/PF 0.5%, 30 ML ONE; +SENNA/DOCUSATE TABLET PO PRN; +SODIUM CHLORIDE 0.9% 50 ML ONE; +TRANEXAMIC ACID 100 MG/ML, 10ML ONE; +VANCOMYCIN 1,000 MG ONE; +ZOLPIDEM 5MG TABLET PO PRN
[2020-06-14] MEDS ORDERED: CHLORHEXIDINE 15 ML UDC PO ONE (11:00)
[2020-06-14] MEDS ORDERED: LACTATED RINGERS 1,000 ML IV SCH (11:00)
[2020-06-14] MEDS ORDERED: ACETAMINOPHEN 500 MG TABLET PO ONE (11:00)
[2020-06-14] MEDS ORDERED: GABAPENTIN 300 MG CAPSULE PO ONE (11:00)
[2020-06-14] MEDS ORDERED: MIDAZOLAM 1 MG/ML, 2ML ONE (11:29)
[2020-06-14] MEDS ORDERED: LABETALOL 5MG/ML, 20ML IV PRN (11:30)
[2020-06-14] MEDS ORDERED: MEPERIDINE/PF 25MG/0.5ML IVPush PRN (11:30)
[2020-06-14] MEDS ORDERED: ACETAMINOPHEN 325 MG TABLET PO PRN (11:30)
[2020-06-14] MEDS ORDERED: PROMETHAZINE 25 MG/ML, 1ML IVPush PRN (11:30)
[2020-06-14] MEDS ORDERED: ALBUTEROL SULFATE 2.5 MG/3 ML NPPB PRN (11:30)
[2020-06-14] MEDS ORDERED: OXYcodone 5 MG/5 ML ORAL.SOL UDC PO PRN (11:30)
[2020-06-14] MEDS ORDERED: MIDAZOLAM 1 MG/ML, 2ML IV PRN (11:30)
[2020-06-14] MEDS ORDERED: FENTANYL PF 250 MCG/5ML ONE (11:30)
[2020-06-14] MEDS ORDERED: HYDROmorphone 1 MG/ML, 1ML INJ IVPush PRN (11:30)
[2020-06-14] MEDS ORDERED: ROCURONIUM 10MG/ML,5ML ONE (13:09)
[2020-06-14] MEDS ORDERED: PROPOFOL 10 MG/ML, 20ML ONE (13:09)
[2020-06-14] MEDS ORDERED: LIDOCAINE-MPF 2% ,5ML ONE (13:09)
[2020-06-14] MEDS ORDERED: GLYCOPYRROLATE 0.2MG/1ML, 5ML ONE (13:09)
[2020-06-14] MEDS ORDERED: DEXAMETHASONE 4 MG/ML, 1ML ONE (13:09)
[2020-06-14] MEDS ORDERED: NEOSTIGMINE 1 MG/ML, 10ML ONE (13:09)
[2020-06-14] MEDS ORDERED: CEFAZOLIN 1,000 MG ONE (13:09)
[2020-06-14] MEDS ORDERED: ONDANSETRON 2MG/ML, 2ML ONE (13:09)
[2020-06-14] MEDS: FENTANYL PF 100 MCG/2ML IV PRN ×3 (13:28→14:11)
[2020-06-14] MEDS ORDERED: METHOCARBAMOL 1,000 MG in DEXTROSE 5% 100 ML IV PRN (13:52)
[2020-06-14] MEDS ORDERED: FENTANYL PF 100 MCG/2ML ONE (13:54)
[2020-06-14] MEDS: ASPIRIN 81 MG TABLET EC PO SCH (17:23)
[2020-06-14] MEDS: HYDROcodone/APAP 5/325 TABLET PO PRN ×3 (17:24→22:03)
[2020-06-14 20:12] VITALS: BP 122/76
[2020-06-14] MEDS: CEFAZOLIN PMX 2GM/50ML 50 ML IVPB SCH (20:26)
[2020-06-15 00:24] VITALS: BP 108/73
[2020-06-15 04:16] VITALS: BP 106/68
[2020-06-15] MEDS: CEFAZOLIN PMX 2GM/50ML 50 ML IVPB SCH (04:30)
[2020-06-15] MEDS: ASPIRIN 81 MG TABLET EC PO SCH (05:46)
[2020-06-15] MEDS ORDERED: DEXAMETHASONE 4 MG/ML, 1ML IVPush SCH (06:00)
[2020-06-15 07:05] VITALS: BP 104/62
[2020-06-15] MEDS: NS + 20MEQ KCL 1,000 ML IV SCH (08:00)
[2020-06-15] MEDS: DOCUSATE 100 MG CAPSULE PO SCH (08:21)
[2020-06-15] MEDS: SPIRONOLACTONE 50 MG TABLET PO SCH (09:00)
[2020-06-15] MEDS ORDERED: TRAM50TA2 PO (10:32)
[2020-06-15] MEDS ORDERED: OXYC5CAP2 PO (10:32)
[2020-06-15] MEDS ORDERED: MELO7.5T31 PO (10:33)
== END 2020-06-15 10:45 | disposition home or self-care (01) ==
LOC: OUT 10:23 → ORIP 15:12 → 4NE 15:57 → OUT 16:03 → 4NE 17:16 → DCLOUNGE 06-15 10:27
PROVIDERS: ADMIT Orthopaedic Surgery; ATTEND Orthopaedic Surgery
DX: M16.0 Bilateral primary osteoarthritis of hip (principal); M81.0 Age-related osteoporosis without current pathological fracture; E66.01 Morbid (severe) obesity due to excess calories; Z87.891 Personal history of nicotine dependence; Z79.899 Other long term (current) drug therapy; Z85.3 Personal history of malignant neoplasm of breast
CPT/HCPCS: 27130; 36415; 72170; 73501; 85014; 85018; 96365; 96366; 96375; 97162; 97165; C1713; C1776; G0378; J0171; J0690; J1100; J1885; J2250; J2405; J2704; J2710; J2795; J2800; J3010; J3370; J3490; J7120; 76000